=== PATIENT | male | born 1955 | race Caucasian/White ===

== ENCOUNTER 2017-04-24 16:17 | Emergency (ER) | payer MEDICARE, OTHER ==
[~2017-04-24] VITALS: Ht 157.5 cm; Wt 100.0 kg
[2017-04-24 16:19] VITALS: BP 170/88; PULSE 97; RESP 20; TEMP 98.5; O2SAT 97
[2017-04-24] MEDS ORDERED: CLIN1CAP6 PO (16:40)
[2017-04-24] MEDS ORDERED: NORC5TAB PO (16:40)
--- NOTE | 2017-04-24 16:41 | PD ---
HPI Chief Complaint: Lump, Cyst, Hernia Time Seen by Provider: 16:32 Travel History International Travel<30 days: No Contact w/Intl Traveler<30days: No Traveled to known affect area: No History of Present Illness HPI Patient is a 61-year-old obese male presents the emergency department with complaint of lump on the scrotum. Patient states that he has had 2-3 days of a lump on the scrotum/perineum. He was seen by his primary care provider 2 days ago who placed him on Bactrim but despite this it has been increasing in size. He denies any drainage. He does note some pain but no fevers, chills. No difficulty with bowel movements or urinary habits. PFSH Past Medical History Cardiovascular Problems: Yes (BYPASS 2011) Social History Tobacco Use: No Allergies-Medications (Allergen,Severity, Reaction): Coded Allergies: UNOBTAINABLE (Unverified , 04/24/17) Review of Systems Except as stated in HPI: all other systems reviewed are Neg Physical Exam Narrative GENERAL: Obese male in no acute distress SKIN: Focused skin assessment warm/dry. See genitourinary exam HEAD: Normocephalic. EYES: No scleral icterus. No injection or drainage. ENT: Mucous membranes pink and moist. NECK: Supple CARDIOVASCULAR: Regular rate and rhythm. RESPIRATORY: No accessory muscle use. GASTROINTESTINAL: Obese GENITOURINARY: external male genitalia reveals edema, induration and fluctuance of the inferior posterior most portion of the scrotum. This is midline and surrounds what appears to be a secondarily infected ingrown hair. There is mild erythema, but no necrosis, drainage. Patient has some tenderness to palpation within this region. The remainder of the genitalia is unremarkable MUSCULOSKELETAL: Normal gait NEUROLOGICAL: Awake and alert. Normal speech. PSYCHIATRIC: Appropriate mood and affect; insight and judgment normal. Data Data Last Documented VS Vital Signs Date Time Temp Pulse Resp B/P Pulse Ox O2 Delivery O2 Flow Rate FiO2 04/24/17 16:19 98.5 97 20 170/88 97 Room Air Orders L[place]ocai-Epi 1%-1:100,000 Inj (Xylocaine- (04/24/17 16:45) Clindamycin (Cleocin) (04/24/17 16:45) MDM Medical Decision Making Medical Screen Exam Complete: Yes Emergency Medical Condition: Yes Medical Record Reviewed: Yes Differential Diagnosis 61-year-old male here with complaint of scrotal pain. Exam is consistent with abscess to the scrotum, cellulitis. There is no evidence of Cami gangrene or necrotizing fasciitis Narrative Course Patient was given clindamycin orally and will be switched to this for home. Incision and drainage performed by PA, please see procedure note. Diagnosis Primary Impression: Scrotal abscess Referrals: Primary Care Physician 2 days Additional Instructions: Antibiotics as prescribed. Stop the Bactrim and take the clindamycin instead. [place] as needed for pain. Follow-up with primary care provider in 2 days for wound check and return to the emergency department for the warning signs discussed. Med/Other Pt SpecificInfo: Prescription(s) given Scripts Hydrocodone-Acetaminophen ([place])5-325 mg Tab1-2 Tab PO Q6H PRN (PAIN) #15 TAB Ref 0 Prov:Vanessa Moser MD 04/24/17 Clindamycin 300 Mg [id number] Mg PO TID 7 Days Ref 0 Prov:Vanessa Moser MD 04/24/17 Disposition: 01 DISCHARGE HOME Condition: Stable Vanessa Moser MD Apr 24, 2017 16:41
[2017-04-24] MEDS ORDERED: CLINDAMYCIN 150 MG CAP PO ONE (16:45)
[2017-04-24] MEDS ORDERED: LIDOCAINE 1%/EPINEPHrine 1:100,000 SOLN 20 ML VIAL INFIL ONE (16:45)
[2017-04-24] MEDS ORDERED: MORPHINE SULFATE 8 MG/ML INJ IM ONE (17:15)
--- NOTE | 2017-04-24 17:54 | PD ---
Physical Exam Date Seen by Provider: Apr 24, 2017 Time Seen by Provider: 17:51 Narrative I was asked by Dr. Gallegos to see this patient for an I&D of a abscess to the lower proximal scrotum. Please see procedure note. Patient required 6 mg IM morphine for pain control prior to the procedure. Data Data Last Documented VS Vital Signs Date Time Temp Pulse Resp B/P Pulse Ox O2 Delivery O2 Flow Rate FiO2 04/24/17 16:19 98.5 97 20 170/88 97 Room Air Orders [place]-Epi 1%-1:100,000 Inj (Xylocaine- (04/24/17 16:45) Clindamycin (Cleocin) (04/24/17 16:45) Morphine Inj (Morphine Inj) (04/24/17 17:15) MDM Medical Record Reviewed: Yes Supervised Visit with NAYELY: Yes Procedures Procedure Narrative After the risks and benefits were discussed the following procedure was performed: INCISION AND DRAINAGE OF ABSCESS: The area was prepped and was sterilely draped. A subcutaneous wheal of 1% % Xylocaine with epi with a total number 4 mL was used to anesthetize the area. The area was properly anesthetized. A number 11 scalpel was used to make a 1.5-cm incision across the area of the abscess. Cultures were obtained. The abscess was drained an irrigated with normal saline. Quarter inch iodoform packing was placed in the wound. Sterile dressing applied. Patient advised to have packing removed in two days. Diagnosis Primary Impression: Scrotal abscess Referrals: Primary Care Physician 2 days Patient Instructions: General Instructions, Abscess (ED) Departure Forms: Tests/Procedures Additional Instruction: Antibiotics as prescribed. Stop the Bactrim and take the clindamycin instead. [place] as needed for pain. Follow-up with primary care provider in 2 days for wound check and return to the emergency department for the warning signs discussed. Scripts Hydrocodone-Acetaminophen ([place])5-325 mg Tab1-2 Tab PO Q6H PRN (PAIN) #15 TAB Ref 0 Prov:Vanessa Moser MD 04/24/17 Clindamycin 300 Mg [id number] Mg PO TID 7 Days Ref 0 Prov:Vanessa Moser MD 04/24/17 Disposition: 01 DISCHARGE HOME Condition: Stable Girish Jay Apr 24, 2017 17:54
== END 2017-04-24 18:25 | disposition home or self-care (01) ==
LOC: NEPD 16:17
DX: N49.2 Inflammatory disorders of scrotum (principal)
CPT/HCPCS: 55100; 96372; 99284; J2270

== ENCOUNTER 2017-04-26 12:51 | Emergency (ER) | payer MEDICARE, OTHER ==
[~2017-04-26] VITALS: Ht 157.5 cm; Wt 102.0 kg
[~2017-04-26 12:51] MED LIST: CLIN1CAP6 PO; NORC5TAB PO
[2017-04-26 12:56] VITALS: BP 140/86; PULSE 92; TEMP 98.7; O2SAT 98
--- NOTE | 2017-04-26 13:43 | PD ---
HPI Chief Complaint: Skin Problem Time Seen by Provider: 13:23 Travel History International Travel<30 days: No Contact w/Intl Traveler<30days: No Traveled to known affect area: No History of Present Illness HPI 61-year-old male here for wound check. Patient seen here in our emergency department by myself 2 days ago with scrotal abscess. He had this incised and drained with significant amounts of purulent fluid. He is discharged home on clindamycin. Patient has been doing well, has been compliant with antibiotics. States that overall the pain in the scrotal region has been improving, swelling has been going down. He continues to drain purulence and scant amount of blood. No fevers or chills. PFSH Past Medical History Cardiac Catheterization: Yes Cardiovascular Problems: Yes (BYPASS 2011) Coronary Artery Disease: Yes Diminished Hearing: No Hypertension: Yes Immunizations Current: No Past Surgical History Coronary Artery Bypass Graft: Yes (X1 2011 ) Social History Alcohol Use: Yes Tobacco Use: Yes Substance Use: No (DENIES ) Allergies-Medications (Allergen,Severity, Reaction): Coded Allergies: Penicillin (Verified Allergy, Unknown, rashes, 04/26/17) Reported Meds & Prescriptions Reported Meds & Active Scripts Active [place] (Hydrocodone-Acetaminophen) 5-325 mg Tab 1-2 Tab PO Q6H PRN Clindamycin (Clindamycin HCl) 300 Mg Cap 300 Mg PO TID 7 Days Review of Systems Except as stated in HPI: all other systems reviewed are Neg Physical Exam Narrative GENERAL: Well-appearing male in no acute distress SKIN: Focused skin assessment warm/dry. HEAD: Normocephalic. EYES: No scleral icterus. No injection or drainage. ENT: Mucous membranes pink and moist. NECK: Supple CARDIOVASCULAR: Regular rate and rhythm. RESPIRATORY: No accessory muscle use. GENTIOURINARY: Scrotum with improving induration, swelling along the inferior aspect, still draining some purulence but no palpable fluctuance at this time. MUSCULOSKELETAL: Normal gait NEUROLOGICAL: Awake and alert. Normal speech. PSYCHIATRIC: Appropriate mood and affect; insight and judgment normal. Data Data Last Documented VS Vital Signs Date Time Temp Pulse Resp B/P Pulse Ox O2 Delivery O2 Flow Rate FiO2 04/26/17 12:56 98.7 92 140/86 98 MDM Medical Decision Making Medical Screen Exam Complete: Yes Emergency Medical Condition: Yes Medical Record Reviewed: Yes Differential Diagnosis 61-year-old male here for wound recheck for scrotal abscess. Wound is clinically improving from 2 days ago to today but is still draining purulence. Therefore I will leave the packing in and patient is continued on antibiotics and follow-up in 2 days to be seen here for potential packing removal. Narrative Course See above Diagnosis Primary Impression: Scrotal abscess Referrals: Primary Care Physician 2 days Additional Instructions: Continue antibiotics as prescribed. Follow-up with primary care provider or emergency department in 2 days for wound check. If you do return to the emergency department I suggest you come early in the morning as this is the least busy time of the day. Med/Other Pt SpecificInfo: No Change to Meds Disposition: 01 DISCHARGE HOME Condition: Stable Vanessa Moser MD Apr 26, 2017 13:43
== END 2017-04-26 13:58 | disposition home or self-care (01) ==
LOC: NEPD 12:51
DX: N49.2 Inflammatory disorders of scrotum (principal); I10 Essential (primary) hypertension; Z72.0 Tobacco use; Z95.1 Presence of aortocoronary bypass graft; I25.10 Atherosclerotic heart disease of native coronary artery without angina pectoris
CPT/HCPCS: 99281